=== PATIENT | female | born 1940 | race Caucasian/White ===

== ENCOUNTER 2018-03-26 13:35 | Day surgery (SDC) | payer MEDICARE, OTHER, SELFPAY ==
[2018-03-26] VITALS (11 sets, daily range): BP systolic 131–163; BP diastolic 75–89; PULSE 71–107; RESP 10–16; TEMP 36.3–36.7; O2SAT 92–99; BMI 22.8
--- NOTE | 2018-03-26 16:40 | PM.PREOP ---
Pre-operative Note Interval Note Pre-op Check: Yes History & Physical Reviewed by Physician and Yes Exam Performed Changes: No
[2018-03-26] MEDS: LACTATED RINGERS 1,000 ML 42 ML IV (18:00)
[2018-03-26] MEDS: CEFAZOLIN 2 GM/100 ML FROZ.PIGGY IV (20:30)
--- NOTE | 2018-03-26 21:08 | SUR.OPER ---
Supine on padded OR bed, head on pillow, arms secured on padded arm boards at <90 degrees abduction, legs uncrossed, safety belt at thigh, tape over blanket over lower legs.
[2018-03-26] MEDS: LACTATED RINGERS 565 ML IV (21:18)
--- NOTE | 2018-03-26 21:31 | SUR.OPER ---
18 GUAGE WIRE AND .062 K WIRES X 2 RIGHT ELBOW
[2018-03-26] MEDS: BUPIVACAINE 0.5% W/ EPI (PF) VIAL 30 ML INJ (21:42)
--- NOTE | 2018-03-26 22:06 | PM.OP.1 ---
Operative Date/Time/Diagnoses Date of procedure: 03/26/18 Time of procedure: 22:06 Pre-op diagnosis: Olecranon fracture right elbow Post-op diagnosis: same Procedure & Clinicians Procedure: Open reduction internal fixation right olecranon fracture Same procedure as scheduled: Yes Indications: The patient is a 77-year-old woman who presents today for fixation of displaced olecranon fracture. The injury happened approximately 1 week ago but initial x-rays were apparently inconclusive. X-rays taken earlier this week did show a displaced fracture. She was referred to our clinic for treatment. We discussed the nature of this injury including the risks, benefits, alternatives, postoperative course expected outcome and all questions answered. She would like to proceed with surgery. Consent obtained. Operative site confirmed and marked. Surgeon: Yony Whitley Click Yes if Unassisted: Yes Anesthesia Type: General and Local Operative Notes Findings: The fracture was primarily a transverse olecranon fracture. There was some extension into the ulna shaft this fragment was stable. The fragment was also stabilized by the [id number]-[id number] wire. Closure Type: primary Specimen(s): none sent Implants & Drains: 0.62 Genesis wires and 18 gauge wire. Applied: implant(s) Estimated Blood Loss (mL): 15 Blood products transfused: none Tourniquet time (min): 49 Procedure in detail: The patient was taken the operative suite and placed under general anesthesia. She was given prophylactic antibiotics prior to surgery. The arm was prepped and draped in usual sterile fashion. A 10 cm incision was made over the ulnar shaft and olecranon. Hematoma was removed from the fracture site. The proximal ulnar shaft was exposed. There was some extension into the shaft but this fragment was relatively stable and did not involve the joint surface. The main olecranon fragment was not comminuted and bone quality overall was good. The fracture was reduced with 2 parallel 0.62 Genesis wires and then further stabilized with a [id number]-gx-phthp 18 gauge wire. The wire was tightened to get good compression of the fracture. AP and lateral fluoroscopy showed good position of the fracture and hardware. The wound was copiously irrigated. The soft tissue was anesthetized with 20 cc of 0.5% Marcaine with epinephrine. The wound was closed with 2 Vicryl and a running 3 0 nylon suture. Xeroform and sterile gauze dressings were applied. Patient was placed into a well-padded long-arm posterior plaster splint. Patient tolerated procedure well was trimmed the curve in good condition. Complications: none Condition: stable Disposition: same day surgery Plan for aftercare: Patient will follow up on 04/06/2018 for repeat x-rays and plain suture removal. She will be placed into a sling or removable splint and begin elbow range of motion.
--- NOTE | 2018-03-26 22:12 | P.OP_ITS ---
Operative Date/Time/Diagnoses Date of procedure: 03/26/18 Time of procedure: 22:06 Pre-op diagnosis: Olecranon fracture right elbow Post-op diagnosis: same Procedure & Clinicians Procedure: Open reduction internal fixation right olecranon fracture Same procedure as scheduled: Yes Indications: The patient is a 77-year-old woman who presents today for fixation of displaced olecranon fracture. The injury happened approximately 1 week ago but initial x-rays were apparently inconclusive. X-rays taken earlier this week did show a displaced fracture. She was referred to our clinic for treatment. We discussed the nature of this injury including the risks, benefits , alternatives, postoperative course expected outcome and all questions answered. She would like to proceed with surgery. Consent obtained. Operative site confirmed and marked. Surgeon: Yony Whitley Click Yes if Unassisted: Yes Anesthesia Type: General and Local Operative Notes Findings: The fracture was primarily a transverse olecranon fracture. There was some extension into the ulna shaft this fragment was stable. The fragment was also stabilized by the [id number]-lp-xgdzw wire. Closure Type: primary Specimen(s): none sent Implants & Drains: 0.62 Genesis wires and 18 gauge wire. Applied: implant(s) Estimated Blood Loss (mL): 15 Blood products transfused: none Tourniquet time (min): 49 Procedure in detail: The patient was taken the operative suite and placed under general anesthesia. She was given prophylactic antibiotics prior to surgery. The arm was prepped and draped in usual sterile fashion. A 10 cm incision was made over the ulnar shaft and olecranon. Hematoma was removed from the fracture site. The proximal ulnar shaft was exposed. There was some extension into the shaft but this fragment was relatively stable and did not involve the joint surface. The main olecranon fragment was not comminuted and bone quality overall was good. The fracture was reduced with 2 parallel 0.62 Genesis wires and then further stabilized with a kzeoqh-zz-seqcb 18 gauge wire. The wire was tightened to get good compression of the fracture. AP and lateral fluoroscopy showed good position of the fracture and hardware. The wound was copiously irrigated. The soft tissue was anesthetized with 20 cc of 0.5% Marcaine with epinephrine. The wound was closed with 2 Vicryl and a running 3 0 nylon suture. Xeroform and sterile gauze dressings were applied. Patient was placed into a well-padded long-arm posterior plaster splint. Patient tolerated procedure well was trimmed the curve in good condition. Complications: none Condition: stable Disposition: same day surgery Plan for aftercare: Patient will follow up on 04/06/2018 for repeat x-rays and plain suture removal. She will be placed into a sling or removable splint and begin elbow range of motion.
[2018-03-26] MEDS: HYDROMORPHONE 2 MG INJ 0.25 MG IV (22:28)
[2018-03-26] MEDS: HYDROMORPHONE 2 MG INJ 0.5 MG IV (22:39)
[2018-03-26] MEDS: HYDROCODONE/ACET 5/325 TABLET 1 TAB PO (22:40)
--- NOTE | 2018-03-26 23:50 | SUR.PHASEII ---
late entry: stable pacu and phase 2. mediated with dilaudid and vicoden. pain down to 3/10 by d/c. pt tolerated ensure and apple juice. assisted to dress when ready to go and left in stable condition, r arm in sling.
== END 2018-03-26 23:05 | disposition home or self-care (01) ==
PROVIDERS: Visit Provider Orthopaedic Surgery
PROC: 0RSL04Z Reposition Right Elbow Joint with Internal Fixation Device, Open Approach (ICD-10-PCS; CPT 24685; principal; 2018-03-26 17:15)
DX: S52.021A Displaced fracture of olecranon process without intraarticular extension of right ulna, initial encounter for closed fracture (principal); W10.8XXA Fall (on) (from) other stairs and steps, initial encounter; I10 Essential (primary) hypertension; E78.5 Hyperlipidemia, unspecified; I25.2 Old myocardial infarction; I25.10 Atherosclerotic heart disease of native coronary artery without angina pectoris; M19.90 Unspecified osteoarthritis, unspecified site
CPT/HCPCS: 24685; 36415; 80051; 85025; 93005; 93010; J0690; J1100; J1170; J2405; J2704; J3010

== ENCOUNTER → 2018-03-26 13:51 | Outpatient (CLI) | payer MEDICARE, OTHER, SELFPAY ==
[2018-03-26 14:57] LABS: Add Manual Diff / Slide Review NO; Basophils Percent Auto 0.6 % (0-2); Eosinophils Percent Auto 0.7 % (2-4); Hematocrit 36.9 % (36-46); Hemoglobin 12.7 g/dL (12.0-16.0); Lymphocytes Percent Auto 25.9 % (25-40); Mean Corpuscular HGB Conc 34.5 % (30-36); Mean Corpuscular Hemoglobin 33.1 PG (26-34); Mean Corpuscular Volume 96.1 fL (80-100); Monocytes Percent Auto 6.1 % (3-14); Neutrophils Absolute Auto 4100 /uL (3000-5900); Neutrophils Percent Auto 66.7 % (50-75); Platelet Count 186 X10^3/uL (150-400); Red Blood Cell Count 3.84 X10^6/uL (4.0-5.2); Red Cell Distribution Width 12.7 % (11.6-14.8); White Blood Cell Count 6.1 X10^3/uL (4.5-11.0)
[2018-03-26 15:26] LABS: Carbon Dioxide 29 mmol/L (22-32); Chloride 107 mmol/L (98-107); HEMOLYSIS < 15 (0-50); Sodium 145 mmol/L (137-145)
== END ==
PROVIDERS: Visit Provider Physician Assistant
DX: M25.521 Pain in right elbow (principal)
CPT/HCPCS: 36415; 80051; 85025; 93005